=== PATIENT | female | born 1985 | race Caucasian/White ===

== ENCOUNTER 2021-10-27 18:35 | Emergency (ER) | payer SELFPAY ==
[2021-10-27] VITALS (20 sets, daily range): BP systolic 113–120; BP diastolic 64–68; PULSE 53–113; RESP 10–32; TEMP 36.4; O2SAT 73–100
--- NOTE | 2021-10-27 18:56 | ED.GENADUL_ITS ---
Discharge Plan Disposition Patient Disposition: HOME Condition: Improving Discharge Details Clinical Impression: Opioid withdrawal Primary Care Provider: None,None ED Provider: Eloy Braun Home Meds and New Rx's Prescriptions: New clonidine HCl 0.1 mg tablet 0.1 mg PO BID PRNQty: 4 0RF Discharge Instructions Instructions: Opioid Withdrawal (ED) Additional Instructions: Please follow-up at the [facility] and or with other resources provided today. Please follow-up with primary care physician. Take medications as prescribed. Return to the emergency department for any worsening symptomatology. Medical Decision Making 36-year-old female history of fentanyl abuse, last use yesterday, endorses symptoms of withdrawal, tachycardia body pain writhing psychomotor agitation, alert and oriented cooperative however uncomfortable appearing, requesting methadone or Suboxone. Patient is not been on methadone or Suboxone is not part of a program. I do not have an x waver to administer Suboxone. Will treat symptomatically with clonidine and benzo. Close reassessment will give information for outpatient treatment. Low suspicion for infectious process metabolic derangement or acute neurologic dysfunction. Feeling much better after clonidine and Ativan. Vital signs improved greatly, no longer tachycardic is now resting comfortably. Will provide short prescription for clonidine as an outpatient. Encouraged to follow-up at [facility]. Also have contacted patient's mother at phone number [phone] who is coming to pick her up. HPI General Date/Time Provider Initiated Documentation: 10/27/21 18:37 . HPI Narrative: Right week 36-year-old female history of substance abuse, IV opioid abuse, presents endorsing withdrawal, endorses she has been shooting fentanyl for some time and last used yesterday, feels very uncomfortable. Requesting Suboxone or methadone. Is not part of the Suboxone or methadone program. Related Data Home Medications Medication Instructions Recorded Confirmed clonidine HCl 0.1 mg tablet 0.1 mg PO BID PRN #4 tab 10/27/21 Previous Rx's Medication Instructions Recorded clonidine HCl 0.1 mg tablet 0.1 mg PO BID PRN #4 tab 10/27/21 Allergies Allergy/AdvReac Type Severity Reaction Status Date / Time No Known Allergies Allergy Unverified 10/27/21 18:43 General Stated Complaint: DrugWithdr/MAT ELVIRA: 2 Review of Systems Narrative: Review of Systems Constitutional: Appears withdrawal Eyes: negative ENT: negative Cardiovascular: negative Respiratory: negative Gastrointestinal: negative : negative Musculoskeletal: negative Skin: negative Neurologic: negative Psych: negative PFSH All Active Problems (Updated 10/27/21 @ 21:54 by Eloy Braun MD) Opioid withdrawal (Acute) Social History Smoking/Tobacco Use Status: Current every day Tobacco Type: cigarettes Smoking risk assessment performed?: Yes Alcohol Intake: never Drug use: Daily Substance use type: opiates and IV drugs Details: iv fentanyl Do you feel safe in your relationship?: Yes Exam Narrative Exam Narrative: Physical Examination General: alert, awake, cooperative, uncomfortable writhing HEENT: normocephalic, atraumatic; PERRL, EOM intact, conjunctiva normal; no nasal discharge; moist mucous membranes, oral and pharyngeal mucosa normal, tolerating secretions Neck: supple, trachea midline; full ROM Chest: normal to inspection Respiratory: normal respiratory effort, speaking in full sentences, clear to auscultation, no wheezing, rales or rhonchi Cardiac: Tachycardia, regular rhythm, S1S2 intact, no murmurs rubs or gallops GI: abdomen soft, non-tender, non-distended; no palpable mass or hepatosplenomegaly Skin: no lesions, rashes or trauma appreciated Neuro: AAOx3, normal speech, moving all extremities Psych: Appropriate mood and affect Course Vital Signs Vital signs: Vital Signs Temperature 36.4 C L 10/27/21 18:40 Pulse 113 H 10/27/21 18:40 Respiratory Rate 28 H 10/27/21 18:40 Blood Pressure 115/68 10/27/21 18:40 Pulse Oximetry 98 10/27/21 18:40 Temperature 36.4 C L 10/27/21 18:40 Temperature Source Skin 10/27/21 18:40 Pulse 113 H 10/27/21 18:40 Respiratory Rate 28 H 10/27/21 18:40 Respiratory Effort 10/27/21 18:40 Blood Pressure 115/68 10/27/21 18:40 Blood Pressure Position Supine 10/27/21 18:40 Pulse Oximetry 98 10/27/21 18:40 Pain Level 10 10/27/21 18:40
[2021-10-27] MEDS: cloNIDine 0.1 MG TAB PO (19:02)
[2021-10-27] MEDS: LORazepam 0.5 MG TAB PO (19:02)
== END 2021-10-27 20:04 | disposition home or self-care (01) ==
PROVIDERS: Emergency Provider Emergency Medicine
DX: F11.23 Opioid dependence with withdrawal (principal); R00.0 Tachycardia, unspecified
CPT/HCPCS: 99283

== ENCOUNTER 2022-06-24 13:26 | Outpatient (REF) | payer MEDICAID, SELFPAY ==
[2022-06-27 09:58] LABS: Hepatitis B Surface Ag Negative (Negative)
[2022-06-27 11:07] LABS: Hepatitis C Ab w Rflx HCV PCR Reactive (Negative)
[2022-06-27 11:08] LABS: HIV-1/2 Ag & Ab Screen Negative (Negative)
[2022-06-29 12:23] LABS: HCV RNA Qualitative Undetected (Undetected)
== END 2022-06-24 13:27 | disposition home or self-care (01) ==
LOC: LBN 13:26
PROVIDERS: Visit Provider Nurse Practitioner Family
DX: F11.20 Opioid dependence, uncomplicated (principal); Z79.899 Other long term (current) drug therapy
CPT/HCPCS: 86803; 87340; 87389; 87522

== ENCOUNTER 2023-03-16 06:16 | Emergency (ER) | payer MEDICAID, SELFPAY ==
--- NOTE | 2023-03-16 08:41 | NUR.NOTE ---
Nursing Note:animal bite form faxed to [facility] officer
== END 2023-03-16 09:04 | disposition home or self-care (01) ==
PROVIDERS: Emergency Provider Emergency Medicine Emergency Medical Services
DX: S61.452A Open bite of left hand, initial encounter (principal); W54.0XXA Bitten by dog, initial encounter
CPT/HCPCS: 12001

== ENCOUNTER 2024-07-18 09:54 | Outpatient (CLI) | payer MEDICAID, SELFPAY ==
--- NOTE | 2024-07-18 09:45 | RT.EKG_ITS ---
APPROVED REPORT Exam: Resting ECG Reason for Exam: High Risk Medication Patient Location: O HR:60 bpm ECG Measurements Heart Rate 60 AXIS AL 110 P 57 QRSd 100 QRS 69 QT 440 T 52 QTc 440 Conclusion Sinus rhythm...normal P axis, V-rate 50- 99 Borderline short AL interval...AL int <120mS Otherwise normal ECG
== END 2024-07-18 09:55 | disposition home or self-care (01) ==
PROVIDERS: Visit Provider Family Medicine
DX: Z79.899 Other long term (current) drug therapy (principal)
CPT/HCPCS: 93005; 93010

== ENCOUNTER 2024-08-09 11:58 | Outpatient (REF) | payer MEDICAID, SELFPAY ==
--- NOTE | 2024-08-09 12:00 | PAPFT_PTH ---
PATIENT: Lynn Harrison LOC: [facility] U#:[id number] AGE/SX: 39/F ROOM: RE08/09/[address]: Martha Chapman : 1985 BED: DIS: 08/09/2024 SPEC #: [id number] RECD: 08/09/24 13:17 STATUS: INDIRA REIzzy #: [id number] BOOKER: 08/09/24 12:[address]: Martha Chapman DEPT: [facility] Cytology RECD BY: Mayte Rodriguez ENTERED: 08/09/24 13:18 SP TYPE: PAPFT OTHR DR: Unknown,Unknown Tissues: 1 - CX/ENDOCX FOR PAP SMEARS Procedures: PAP THIN PREP/UVM Screening Comments: [id number]
[2024-08-12 12:49] LABS: Chlamydia Result Negative (Negative); GC Result Negative (Negative)
== END 2024-08-09 11:59 | disposition home or self-care (01) ==
LOC: LBN 11:58
PROVIDERS: Visit Provider Obstetrics & Gynecology Gynecology
DX: N76.0 Acute vaginitis (principal); Z97.5 Presence of (intrauterine) contraceptive device; Z30.430 Encounter for insertion of intrauterine contraceptive device; Z11.3 Encounter for screening for infections with a predominantly sexual mode of transmission; Z12.4 Encounter for screening for malignant neoplasm of cervix; Z72.0 Tobacco use; T19.2XXA Foreign body in vulva and vagina, initial encounter; W44.8XXA Other foreign body entering into or through a natural orifice, initial encounter; A42.89 Other forms of actinomycosis
CPT/HCPCS: 87491; 87591; 88142

== ENCOUNTER 2024-10-02 09:15 | Emergency (ER) | payer MEDICAID, SELFPAY ==
[2024-10-02 09:27] VITALS: BP 117/59; PULSE 66; RESP 15; TEMP 36.7; O2SAT 99
[2024-10-02 09:33] VITALS: BP 117/59; PULSE 66; RESP 15; TEMP 36.7; O2SAT 99
--- NOTE | 2024-10-02 09:51 | ED.GENADUL_ITS ---
Discharge Plan Disposition Patient Disposition: Home Condition: Good Discharge Details Clinical Impression: Pain, dental Primary Care Provider: Unknown,Unknown ED Provider: Haylie Madrid Home Meds and New Rx's Prescriptions: New penicillin V potassium 500 mg tablet 500 mg PO QID 7 Days Qty: 28 0RF No Action methadone 40 mg tablet,soluble 120 mg PO DAILY ParaGard T 380A 380 square mm intrauterine device 1 device intrauterine ONCE Qty: 1 0RF Rx Instructions: as a single dose Discharge Instructions Additional Instructions: Please call local dentist to schedule follow-up appointment for evaluation/definitive management. I have prescribed an antibiotic called penicillin. Please take the full course as prescribed. I recommend he take this with Activia yogurt or probiotic to help prevent antibiotic associated diarrhea. You may continue to use ibuprofen 600 mg every 8 hours and Tylenol 1000 mg every 8 hours for discomfort as needed. Continue using cloves; teabags and Orajel may be used as well. Do not exceed the dosing recommended on the Orajel package. Return to emergency care for develop new fevers despite treatment, swelling, difficulty swallowing, trouble opening your mouth, difficulty breathing, or if you are very worried and need to be rechecked again immediately HPI General Date/Time Provider Initiated Documentation: 10/02/24 09:20 . HPI Narrative: Lynn is a 39 year old female who presents to the emergency department today for evaluation of dental pain. She reports that this started a couple of days ago, is diffusely present all over her mouth. She reports that she feels like her glands under her jaw are getting a bit swollen as well. She does have extensive dental decay, says that she no longer has a dentist and needs to follow-up for treatment. Denies associated fever/chills, unusual headaches, vision changes, pus drainage in mouth, intraoral swelling, difficulty swallowing, difficulty breathing. She does have sensitivity to cold, has been able to eat soft foods without difficulty and is staying well-hydrated. Taking ibuprofen and Tylenol for discomfort.. Past medical history is significant for methadone use. She does have an IUD in place. Physical exam remarkable for extensive dental decay. She does have tenderness to palpation along gumline, no obvious abscesses or gingival swelling. No swelling under tongue. Clear voice. Normal oropharynx. Mild submandibular lymphadenopathy. Painless range of motion of neck. Voice is clear. Easy work of breathing. No rash noted on face. Normal facial strength D/dx includes but is not limited to: Dental infection, dental pain attributed to dental caries, other nerve pain. No red flags concerning for systemic infection or extension of infection into deep space requiring emergent diagnostic imaging or blood work at this time. Patient does not meet criteria for sepsis Reviewed discharge instructions with patient, including symptomatic management, importance of following up with dental, use of antibiotics and probiotics to prevent antibiotic associated diarrhea, and red flags indicating need for return to emergency care. Provided list of dentist in local area Related Data Home Medications ?Medication ?Instructions ?Recorded ?Confirmed methadone 40 mg soluble tablet 120 mg PO DAILY 08/09/24 10/02/24 copper 380 square mm intrauterine 1 device intrauterine ONCE #1 ea 08/11/24 10/02/24 device (ParaGard T 380A) penicillin V potassium 500 mg 500 mg PO QID 7 days #28 tabs 10/02/24 tablet Previous Rx's ?Medication ?Instructions ?Recorded copper 380 square mm intrauterine 1 device intrauterine ONCE #1 ea 08/11/24 device (ParaGard T 380A) penicillin V potassium 500 mg 500 mg PO QID 7 days #28 tabs 10/02/24 tablet Allergies Allergy/AdvReac Type Severity Reaction Status Date / Time No Known Allergies Allergy Unverified 10/02/24 09:33 General Stated Complaint: DentalOral ELVIRA: 4 Review of Systems Narrative: see HPI Exam Const General: cooperative, healthy appearing, comfortable, no acute distress, well developed and well groomed Nutritional Appearance: average body habitus Orientation: alert and oriented x3 HENMT Head: normal to inspection Ears: hearing grossly normal bilaterally General nose exam: external nose normal Face and sinus: normal facial exam Mouth: oral mucosae normal, lip normal, tongue normal, salivary ducts normal, oropharynx normal and moist mucous membranes Teeth and gingiva: gingiva abnormal (Tenderness with palpation) and poor dentition Throat: posterior oropharynx normal Neck Neck: lymphadenopathy (Mild submandibular) Resp Effort & Inspection: normal respiratory effort and able to speak in complete sentences Course Vital Signs Vital signs: Vital Signs Temperature 36.7 C 10/02/24 09:27 Pulse 66 10/02/24 09:27 Respiratory Rate 15 10/02/24 09:27 Blood Pressure 117/59 L 10/02/24 09:27 Pulse Oximetry 99 10/02/24 09:27 Temperature 36.7 C 10/02/24 09:33 Temperature Source Temporal Artery Scan 10/02/24 09:33 Pulse 66 10/02/24 09:33 Respiratory Rate 15 10/02/24 09:33 Blood Pressure 117/59 L 10/02/24 09:33 Blood Pressure Position Sitting 10/02/24 09:33 Pulse Oximetry 99 10/02/24 09:33 Oxygen Delivery Method Room Air 10/02/24 09:33 Oxygen Flow Rate 0 10/02/24 09:33 Pain Level 7 10/02/24 09:33 Medical Decision Making Quality:SDOH Health Related Social Needs: No Data to Display PFSH All Active Problems (Updated 10/02/24 @ 09:47 by Haylie Davis) Pain, dental (Acute) Tobacco use (Acute) Methadone maintenance therapy patient (Acute) Encounter for Pap smear of cervix with HPV DNA cotesting (Acute) Screening examination for STI (Acute) Encounter for insertion of copper IUD (Acute) IUD (intrauterine device) in place (Acute) Social History (Updated 08/09/24 @ 12:33 by Martha Chapman MD) Smoking/Tobacco Use Status: Current every day Tobacco Type: cigarettes Smoking risk assessment performed?: Yes Alcohol Intake: never Drug use: Current Sobriety Substance use type: former substance user Date of last use: MAT programs in past: Suboxone - had issues with relapse. OK with Methadone, opiates and IV drugs Details: Hx of IV fentanyl use. 08/2024: Most recent MAT program x6mo methadone at [facility] Household members: children and other Details: 08/2024: 16yo daughter. New BF x 4mo. Partner of 18yrs recently left Number of Children: 1 number of grandchildren: 0 Do you feel safe in your relationship?: Yes History History 2 Para Hx # Term Pregnancies 1 Multiple births Hx # Pregnancies Ectopic pregnancies AB induced Hx Number of Living Children 1 AB spontaneous
== END 2024-10-02 09:58 | disposition home or self-care (01) ==
PROVIDERS: Emergency Provider Nurse Practitioner Family
DX: K08.89 Other specified disorders of teeth and supporting structures (principal)
CPT/HCPCS: 81025; 99282; 99283

== ENCOUNTER 2024-11-24 10:28 | Emergency (ER) | payer MEDICAID, SELFPAY ==
[2024-11-24 10:31] VITALS: BP 126/88; PULSE 58; RESP 18; TEMP 37.1; O2SAT 98
[2024-11-24 10:41] VITALS: BP 126/88; PULSE 58; RESP 18; TEMP 37.1; O2SAT 98
--- NOTE | 2024-11-24 10:41 | W.ED.GENAD ---
Discharge Plan Disposition Patient Disposition: Home Condition: Good Discharge Details Clinical Impression: Dental caries Primary Care Provider: Unknown,Unknown ED Provider: Haylie Madrid Home Meds and New Rx's Prescriptions: New amoxicillin-pot clavulanate 875-125 mg tablet 1 tab PO Q12H Qty: 20 0RF Rx Instructions: Take 1 tablet by mouth BID x 10 days No Action methadone 40 mg tablet,soluble 120 mg PO DAILY ParaGard T 380A 380 square mm intrauterine device 1 device intrauterine ONCE Qty: 1 0RF Rx Instructions: as a single dose Discharge Instructions Additional Instructions: Please follow-up with a dentist as scheduled. Please take antibiotics as prescribed for the full course. I recommend taking each dose with half a cup of activia yogurt or other probiotic to prevent antibiotic associated diarrhea. You may continue to take Tylenol 500 mg every 4-6 hours and ibuprofen 800 mg 3 times a day as needed for pain control. Orajel may also be helpful. Avoid very hot or cold foods. Gentle/soft foods may be most comfortable for the time being. Return to emergency care if develop new facial swelling, swelling in your mouth/under tongue, hoarse voice, swelling on one side of your neck, vision changes/severe headaches, fever/chills, or if you are very worried any 3 rechecked again immediately HPI General Date/Time Provider Initiated Documentation: 11/24/24 10:30. HPI Narrative: Lynn is a 39 year old female who presents to the emergency department today for evaluation of toe pain. She reports that she has broken teeth, was recently treated with penicillin for infection of the left lower teeth. She reports that she has some pain, no obvious pus drainage, fever/chills, vision changes, dizziness, ear pain, difficulty swallowing, swelling inside mouth, nausea/vomiting/diarrhea, or other symptoms of illness. Past medical history is significant for methadone use. Denies history of antibiotic resistance. Has been taking Tylenol and ibuprofen for discomfort. Physical exam remarkable for extensive dental caries with broken teeth to the left lower 1st and 2nd molars. No pus drainage noted. Tenderness to palpation. Mild gumline swelling. No intraoral swelling otherwise. No swelling of the tongue. Clear voice. Normal oropharynx. No cervical submandibular lymphadenopathy. PERRL, EOMs intact. Easy work of breathing, able to speak in full sentences. History and presentation consistent with uncomplicated dental caries with infection. Will treat with antibiotics. No red flags concerning for deep space infection/extension of infection, cranial nerve involvement, or other red flag symptoms indicating need for emergent diagnostic imaging/labs. Patient does not meet sepsis criteria. While in the emergency department, Lynn received first dose of antibiotics and 2 doses for home use, as pharmacies are closed due to holiday. Reviewed discharge instructions with patient, including symptomatic management and red flags indicating need for return to emergency care Related Data Home Medications ?Medication ?Instructions ?Recorded ?Confirmed methadone 40 mg soluble tablet 120 mg PO DAILY 08/09/24 11/24/24 copper 380 square mm intrauterine 1 device intrauterine ONCE #1 ea 08/11/24 11/24/24 device (ParaGard T 380A) amoxicillin 875 mg-potassium 1 tab PO Q12H #20 tabs 11/24/24 clavulanate 125 mg tablet Previous Rx's ?Medication ?Instructions ?Recorded copper 380 square mm intrauterine 1 device intrauterine ONCE #1 ea 08/11/24 device (ParaGard T 380A) amoxicillin 875 mg-potassium 1 tab PO Q12H #20 tabs 11/24/24 clavulanate 125 mg tablet Allergies Allergy/AdvReac Type Severity Reaction Status Date / Time No Known Allergies Allergy Unverified 11/24/24 10:34 General Stated Complaint: DentalOral ELVIRA: 4 Review of Systems Narrative: see HPI Exam Const General: cooperative, healthy appearing, comfortable, no acute distress, well developed and well groomed Nutritional Appearance: average body habitus Orientation: alert and oriented x3 HENMT Head: normal to inspection Ears: hearing grossly normal bilaterally General nose exam: external nose normal Face and sinus: normal facial exam Mouth: oral mucosae normal, lip normal, tongue normal, salivary ducts normal, oropharynx normal and moist mucous membranes Teeth and gingiva: poor dentition Throat: posterior oropharynx normal, tonsils normal and uvula midline Neck Neck: normal visual inspection, full ROM and no lymphadenopathy Resp Effort & Inspection: normal respiratory effort and able to speak in complete sentences Skin General skin exam: no rashes or lesions noted Neuro General: tone normal and moves all extremities Cranial Nerves: PERRL, EOM intact bilaterally, facial strength normal and able to rotate head bilaterally Cognition: normal cognition Speech: speech normal Course Vital Signs Vital signs: Vital Signs Temperature 37.1 C 11/24/24 10:31 Pulse 58 L 11/24/24 10:31 Respiratory Rate 18 11/24/24 10:31 Blood Pressure 126/88 11/24/24 10:31 Pulse Oximetry 98 11/24/24 10:31 Temperature 37.1 C 11/24/24 10:31 Temperature Source Temporal Artery Scan 11/24/24 10:31 Pulse 58 L 11/24/24 10:31 Respiratory Rate 18 11/24/24 10:31 Blood Pressure 126/88 11/24/24 10:31 Blood Pressure Position Sitting 11/24/24 10:31 Pulse Oximetry 98 11/24/24 10:31 Oxygen Delivery Method Room Air 11/24/24 10:31 Oxygen Flow Rate 0 11/24/24 10:31 Pain Level 7 11/24/24 10:31 Medical Decision Making Quality:SDOH Health Related Social Needs: No Data to Display PFSH All Active Problems (Updated 11/24/24 @ 10:49 by Haylie Davis) Dental caries (Acute) Tobacco use (Acute) Methadone maintenance therapy patient (Acute) Encounter for Pap smear of cervix with HPV DNA cotesting (Acute) Screening examination for STI (Acute) Encounter for insertion of copper IUD (Acute) IUD (intrauterine device) in place (Acute) Social History (Updated 08/09/24 @ 12:33 by Martha Chapman MD) Smoking/Tobacco Use Status: Current every day Tobacco Type: cigarettes Smoking risk assessment performed?: Yes Alcohol Intake: never Drug use: Current Sobriety Substance use type: former substance user Date of last use: MAT programs in past: Suboxone - had issues with relapse. OK with Methadone, opiates and IV drugs Details: Hx of IV fentanyl use. 08/2024: Most recent MAT program x6mo methadone at [facility] Household members: children and other Details: 08/2024: 16yo daughter. New BF x 4mo. Partner of 18yrs recently left Number of Children: 1 number of grandchildren: 0 Do you feel safe at home: Yes Do you feel safe in your relationship?: Yes History History 2 Para Hx # Term Pregnancies 1 Multiple births Hx # Pregnancies Ectopic pregnancies AB induced Hx Number of Living Children 1 AB spontaneous
[2024-11-24] MEDS: Amoxicillin 875/Clav. 125 TAB PO (10:57)
[2024-11-24] MEDS: Amox. 875/Clav. 125, 2 TABS/BTL 1 TAB PO (10:57)
== END 2024-11-24 11:00 | disposition home or self-care (01) ==
PROVIDERS: Emergency Provider Nurse Practitioner Family
DX: K04.7 Periapical abscess without sinus (principal)
CPT/HCPCS: 99283

== ENCOUNTER 2025-06-04 09:13 | Emergency (ER) | payer MEDICAID, SELFPAY ==
[2025-06-04 09:37] VITALS: BP 113/70; PULSE 91; RESP 16; TEMP 36.8; O2SAT 98
--- NOTE | 2025-06-04 10:17 | W.ED.GENAD ---
Discharge Plan Disposition Patient Disposition: Home Condition: Good Discharge Details Clinical Impression: Dental infection Primary Care Provider: Unknown,Unknown ED Provider: Ekta Campos Home Meds and New Rx's Prescriptions: New amoxicillin-pot clavulanate 875-125 mg tablet 1 tab PO BID Qty: 14 0RF Continued methadone 40 mg tablet,soluble 120 mg PO DAILY ParaGard T 380A 380 square mm intrauterine device 1 device intrauterine ONCE Qty: 1 0RF Rx Instructions: as a single dose Discharge Instructions Instructions: Dental Pain ED Additional Instructions: As we discussed, I am concerned that you have recurrent infection in the right upper broken tooth. Please take the antibiotics as prescribed. Even if symptoms improve, please take the entire course and ensure that you keep your upcoming appointment with your dentist. You may continue with the [id number] regimen to help with discomfort. You may add Tylenol and ibuprofen as needed for discomfort. Please continue to encourage hydration. You may also try wax to help cover any open nerve endings that may also be increasing your discomfort. If you develop fever/chills, increased pain, swelling or other new/worsening symptom please seek care urgently once again. Discharge Data Discharge Date/Time-TO BE ENTERED AT DEPARTURE: 06/04/25 10:43 HPI General Date/Time Provider Initiated Documentation: 06/04/25 10:17. Limitations to Documentation: no limitations. Information obtained by: patient, RN notes reviewed and old records reviewed. History of Present Illness 40 year old F presents to the emergency department with the chief complaint of right upper dental pain, described as moderate and similar to prior episodes, Quality is described as aching, and is localized to the mouth. Patient reports no radiation. Patient started experiencing this day(s) and it has been constant. No relieving factors improve symptom(s), No exacerbating factors reported . Patient notes no other symptoms.. Patient did receive the following treatments prior to arrival, none Related Data Home Medications Medication Instructions Recorded Confirmed methadone 40 mg soluble tablet 120 mg PO DAILY 08/09/24 06/04/25 copper 380 square mm intrauterine 1 device intrauterine ONCE #1 ea 08/11/24 06/04/25 device (ParaGard T 380A) amoxicillin 875 mg-potassium 1 tab PO BID #14 tabs 06/04/25 clavulanate 125 mg tablet Previous Rx's Medication Instructions Recorded copper 380 square mm intrauterine 1 device intrauterine ONCE #1 ea 08/11/24 device (ParaGard T 380A) amoxicillin 875 mg-potassium 1 tab PO BID #14 tabs 06/04/25 clavulanate 125 mg tablet Allergies Allergy/AdvReac Type Severity Reaction Status Date / Time No Known Allergies Allergy Unverified 06/04/25 09:41 General Stated Complaint: DentalOral ELVIRA: 5 Review of Systems Constitutional Constitutional: Reports as per HPI, Denies chills, Denies fever(s) and Denies headache(s) ENT Ears, Nose, Mouth, and Throat: Reports as per HPI, Reports dental pain, Denies dysphagia, Denies dizziness, Denies otalgia, Denies headache(s), Denies nasal congestion, Denies odynophagia and Denies sore throat Cardiovascular Cardiovascular: Reports as per HPI and Denies chest pain Respiratory Respiratory: Reports as per HPI and Denies cough Gastrointestinal Gastrointestinal: Reports as per HPI, Denies dysphagia, Denies nausea, Denies odynophagia and Denies vomiting Integumentary/Breasts Skin/Breast: Reports as per HPI, Denies erythema, Denies rash and Denies skin pain Neurologic Neurologic: Reports as per HPI, Denies dizziness and Denies headache(s) Exam Const General: cooperative, healthy appearing, comfortable, no acute distress, well developed and well groomed Nutritional Appearance: average body habitus and well nourished Orientation: alert and awake [facility] Head: normal to inspection, normocephalic and atraumatic Ears: hearing grossly normal bilaterally General nose exam: external nose normal and nares normal Face and sinus: normal facial exam, sinuses nontender and face symmetric Teeth and gingiva: caries, poor dentition (multiple broken nubbin teeth, pain at #3) and other (no swelling or abscess formation) Throat: posterior oropharynx normal, tonsils normal and uvula midline Eyes General: appearance normal, both eyes and all related structures Neck Neck: normal visual inspection, full ROM, no lymphadenopathy, supple and no anterior neck swelling Resp Effort & Inspection: normal respiratory effort, able to speak in complete sentences and no respiratory distress Cardio Rate: regular rate Rhythm: regular rhythm Skin General skin exam: no rashes or lesions noted Trauma: no lacerations or abrasions Course Vital Signs Vital signs: Vital Signs Temperature 36.8 C 06/04/25 09:37 Pulse 91 H 06/04/25 09:37 Respiratory Rate 16 06/04/25 09:37 Blood Pressure 113/70 06/04/25 09:37 Pulse Oximetry 98 06/04/25 09:37 Temperature 36.8 C 06/04/25 09:37 Temperature Source Oral 06/04/25 09:37 Pulse 91 H 06/04/25 09:37 Respiratory Rate 16 06/04/25 09:37 Blood Pressure 113/70 06/04/25 09:37 Pulse Oximetry 98 06/04/25 09:37 Pain Level 8 06/04/25 09:37 Medical Decision Making Patient is a pleasant 40-year-old female, presenting today with chief complaint of right upper dental pain. She reports that this has been a chronic issue but has been exacerbated over the past week. She does have an appointment with a dentist in 2 weeks for definitive care of her multiple known dental caries. She denies any recent fevers or chills. No known trauma. Has not had any significant swelling. States that she has been trying close, Orajel with minimal improvement in her discomfort. Reports that she has IUD placed, LMP was 2 weeks ago. On exam, patient appears nontoxic. She does appear slightly anxious. She does not have any significant swelling. She has multiple fractured and Noven teeth. No area of fluctuance or significant drainage. The area in question because most discomfort is near the #3 and 4 tooth. Primarily along the buccal side. Again, no evidence to suggest collection or abscess. Posterior oropharynx is normal. No swelling under the tongue. No evidence to suggest a deep space infection or spreading of infection. Patient does not appear septic. Will treat with antibiotics, primarily concerned with the upcoming dental work that a active infection may delay her care. I encouraged that even if symptoms are improving, she take the entire course and keep her upcoming appointment with the dentist. Encourage hydration. Encouraged supportive care. All of her questions and concerns were addressed and she is in agreement with this plan. Strict return precautions were discussed. Dictation completed using [employer] dictation software. Please excuse any errors or brick or block maker anomalies that may remain. PFSH All Active Problems (Updated 06/04/25 @ 10:30 by CHERYL Cueva) Dental infection (Acute) Tobacco use (Acute) Methadone maintenance therapy patient (Acute) Encounter for Pap smear of cervix with HPV DNA cotesting (Acute) Screening examination for STI (Acute) Encounter for insertion of copper IUD (Acute) IUD (intrauterine device) in place (Acute) Social History (Updated 08/09/24 @ 12:33 by Martha Chapman MD) Smoking/Tobacco Use Status: Current every day Tobacco Type: cigarettes Smoking risk assessment performed?: Yes Alcohol Intake: never Drug use: Current Sobriety Substance use type: former substance user Date of last use: MAT programs in past: Suboxone - had issues with relapse. OK with Methadone, opiates and IV drugs Details: Hx of IV fentanyl use. 08/2024: Most recent MAT program x6mo methadone at [facility] Household members: children and other Details: 08/2024: 16yo daughter. New BF x 4mo. Partner of 18yrs recently left Housing: house Number of Children: 1 number of grandchildren: 0 Do you feel safe at home: Yes Do you feel safe in your relationship?: Yes History History 2 Para Hx # Term Pregnancies 1 Multiple births Hx # Pregnancies Ectopic pregnancies AB induced Hx Number of Living Children 1 AB spontaneous
[2025-06-04 10:40] VITALS: BP 114/81; PULSE 77; RESP 14; O2SAT 99
[2025-06-04 10:43] VITALS: BP 114/81; PULSE 77; RESP 14; TEMP 36.8; O2SAT 99
== END 2025-06-04 10:43 | disposition home or self-care (01) ==
PROVIDERS: Emergency Provider Physician Assistant
DX: K04.7 Periapical abscess without sinus (principal)
CPT/HCPCS: 99283 ×2